=== PATIENT | male | born 1950 | race Caucasian/White ===

== ENCOUNTER 2025-06-18 12:09 | Outpatient (CLI) | payer MEDICARE, BC ==
--- NOTE | 2025-06-18 14:22 | RADIOLOGY REPORT ---
PROCEDURE: MR MRI LUMBAR SPINE INDICATION: LOW BACK PAIN, SPONDYLOSIS W/O MYELOPATHY,ENTHESOPATHY, UNSPECIFIED Exam Date: 06/18/2025 12:17 PM COMPARISON: None TECHNIQUE: MRI lumbar spine without intravenous contrast. FINDINGS: No vertebral body fractures are identified about the lumbar spine. The conus terminates at L1. There is slight thoracolumbar levoscoliosis. L1-L2: No significant discopathy, spinal canal stenosis, or neural foraminal stenosis bilaterally. There is bilateral facet hypertrophy. L2-L3: There is retrolisthesis L2 on L3 measuring 2 mm AP. There is loss of disc height. There are Schmorl's nodes in the adjacent endplates. There are Modic type 1 and 2 changes in the adjacent endplates. There is a circumferential broad disc bulge with endplate hypertrophy, most prominent in the right foraminal region. There is bilateral facet hypertrophy. There is moderate bilateral neural foraminal stenosis. L3-L4: There is retrolisthesis L3 on L4 measuring 3.5 mm AP. There is a Schmorl's node in the L3 inferior endplate. There is a circumferential broad disc bulge with endplate hypertrophy. No significant spinal canal stenosis. There is mild bilateral neural foraminal stenosis. L4-L5: There is retrolisthesis L4 on L5 measuring 4.5 mm. There are Modic type 1 and 2 changes in the adjacent endplates. There is a circumferential broad disc bulge with endplate hypertrophy. There is bilateral facet hypertrophy. No significant spinal canal stenosis. There is mild right and moderate to severe left neural foraminal stenosis. L5-S1: There is grade 1 anterolisthesis L5 on S1 measuring 7.5 mm AP, with bilateral L5 spondylolysis. Probable vacuum phenomenon in the disc. There are Modic type 2 changes in the adjacent endplates. There is a circumferential broad disc bulge with endplate hypertrophy. There is bilateral facet hypertrophy. No significant spinal canal stenosis. There is moderate to severe bilateral neural foraminal stenosis. IMPRESSION: 1. No vertebral body fracture of the lumbar spine. 2. Bilateral L5 spondylolysis with a grade 1 anterolisthesis L5 on S1. 3. Degenerative disc disease and facet arthropathy with significant neural foraminal stenosis at L2-L3 bilaterally, L4-L5 on the left, and L5-S1 bilaterally. These findings may correspond to lower extremity radicular symptoms in the bilateral L2, left L4, and bilateral L5 nerve root distributions. 4. No high-grade spinal canal stenosis at any level in the lumbar spine.
== END 2025-06-18 23:59 | disposition home or self-care (01) ==
LOC: MRI02 12:09
PROVIDERS: ATTEND Family Medicine Sports Medicine
DX: M51.17 Intervertebral disc disorders with radiculopathy, lumbosacral region (principal); M77.9 Enthesopathy, unspecified; M47.816 Spondylosis without myelopathy or radiculopathy, lumbar region; S43.431A Superior glenoid labrum lesion of right shoulder, initial encounter; M48.8X6 Other specified spondylopathies, lumbar region; M48.8X8 Other specified spondylopathies, sacral and sacrococcygeal region; M51.27 Other intervertebral disc displacement, lumbosacral region; M25.511 Pain in right shoulder; M43.17 Spondylolisthesis, lumbosacral region
CPT/HCPCS: 72148